=== PATIENT | female | born 2000 | race Caucasian/White ===

== ENCOUNTER 2021-06-21 10:00 | Emergency (ER) | payer OTHER, SELFPAY ==
[2021-06-21 10:10] VITALS: BP 117/49; PULSE 86; RESP 16; TEMP 36.4; O2SAT 100
--- NOTE | 2021-06-21 10:16 | ED.URI ---
HPI - URI/Sore Throat General Chief Complaint: Upper Respiratory Infection Stated Complaint: sore throat Time Seen by Provider: 06/21/21 10:15 Source: patient Mode of arrival: ambulatory Limitations: no limitations History of Present Illness HPI Narrative: Ms. Sparrow is a 20-year-old female patient presenting to the clinic today with complaints of sore throat x2 weeks. She also reports some nasal congestion and feels as though the drainage is going in the back of her throat. She denies any fever or chills. She denies any nausea or vomiting or abdominal pain. No known exposure to anybody with COVID, strep, or flu. MD elicited complaint: sore throat and nasal congestion Related Data Allergies Allergy/AdvReac Type Severity Reaction Status Date / Time No Known Allergies Allergy Mild Unverified 06/21/21 10:28 Review of Systems Review of Systems: Pertinent positives per HPI. Patient denies any fever, chills, rash, headache, visual changes, dizziness, cough, shortness of breath, chest pain, palpitations, nausea, vomiting, diarrhea, constipation, abdominal pain, or any urinary issues. PMFSH Comments At the time of my signature, I reviewed and agree with the nursing past medical, surgical, social, and family history. There is no relevant family history pertinent to the patient complaint. Exam Narrative: General: Well-developed, well nourished, in no apparent distress Head: Normocephalic, atraumatic Eyes: Pupils equally round and reactive to light bilaterally, EOM intact, sclera and conjunctive clear, no discharge, lids normal Ears: TMs intact and clear, ear canals clear, no drainage, grossly hearing normal. Nose: Nares patent, clear nasal discharge, no inflammation, no sinus tenderness. Mouth: Oral pharynx without lesions or masses, good dentition, MMM. Postnasal drip, oropharynx mildly red without tonsillar enlargement or exudate Neck: Supple, trachea midline, no enlargement of anterior or posterior cervical nodes, no thyroid masses or goiter palpable. Cardio: Regular rate and rhythm, s1 and s2 normal, no murmur appreciated. Resp: Clear to auscultation bilaterally, no rhonchi, rales, wheezing or rubs Course Course Emergency Course: Portions of this record may have been created with voice recognition software. Level of Care: Express Care Visit Vital Signs Vital signs: Vital Signs Temperature 36.4 C L 06/21/21 10:10 Pulse Rate 86 06/21/21 10:10 Respiratory Rate 16 06/21/21 10:10 Blood Pressure 117/49 L 06/21/21 10:10 Pulse Oximetry 100 06/21/21 10:10 Temperature 36.4 C L 06/21/21 10:10 Pulse Rate 86 06/21/21 10:10 Respiratory Rate 16 06/21/21 10:10 Blood Pressure 117/49 L 06/21/21 10:10 Pulse Oximetry 100 06/21/21 10:10 Vital signs reviewed MDM - URI/Sore Throat MDM Narrative Medical decision making narrative: At the time of visit patient is resting comfortably on the exam table. Oropharynx mildly red with no tonsillar exudate or swelling. Strep screen was obtained and was positive for strep so I will treat her with a course of amoxicillin. Supportive measures were discussed with patient and she voiced understanding of discharge instructions. Differential Diagnosis Differential diagnosis: Likely upper respiratory infection, croup, otitis media, sinusitis, viral infection, bronchitis, influenza and pharyngitis Discharge Plan Discharge Clinical Impression: Acute streptococcal pharyngitis Patient Disposition: Home, Self-Care Condition: Stable Instructions: Antibiotic Form, Strep Throat (ED) Additional Instructions: Strep screen was positive in the clinic Change toothbrush in 24 hours after initiation of antibiotics Take prescription medications only as prescribed Increase fluids and stay well hydrated Tylenol/motrin for pain/fever Flonase and OTC antihistamines as directed Vicks vapor rub to open sinuses Sinus rinses for congestion Cepacol spray, cough dick
== END 2021-06-21 10:49 | disposition home or self-care (01) ==
PROVIDERS: Emergency Provider Nurse Practitioner Family
DX: J02.0 Streptococcal pharyngitis (principal)
CPT/HCPCS: 87880; 99213; G0463

== ENCOUNTER 2024-03-12 08:37 | Outpatient (CLI) | payer MEDICAID, SELFPAY ==
[2024-03-12 09:31] LABS: Basophils Absolute Auto 0.1 K/mm3 (0.0-0.1); Eosinophils Absolute Auto 0.1 K/mm3 (0-0.3); Eosinophils Percent Auto 1.1 % (0-4.4); Hematocrit 28.7 % (37.0-47.0); Hemoglobin 8.4 g/dL (12.0-15.0); Immature Granulocyte Absolute 0.03 K/mm3 (0.00-0.031); Immature Granulocyte Percent A 0.3 % (0-0.5); Lymphocytes Absolute Auto 2.02 K/mm3 (0.9-3.2); Lymphocytes Percent Auto 18.7 % (18.3-44.2); Mean Corpuscular HGB Conc 29.3 g/dl (32-36); Mean Corpuscular Hemoglobin 19.6 pg (26-34); Mean Corpuscular Volume 66.9 fl (80-100); Mean Platelet Volume 9.2 fl (7.4-10.4); Monocytes Absolute Auto 0.8 K/mm3 (0.1-0.6); Monocytes Percent Auto 7.8 % (2.6-8.5); Neutrophils Absolute Auto 7.7 K/mm3 (1.3-6.7); Neutrophils Percent Auto 71.1 % (45.5-73.1); Platelet Count Result 564 k/mm3 (150-375); Red Blood Count 4.29 M/mm3 (4.2-5.4); Red Cell Distribution Width 18.6 % (11.5-14.5); White Blood Count 10.8 K/mm3 (4.5-10.0)
[2024-03-12 10:18] LABS: Anisocytosis 1+; Hypochromasia 1+; Microcytosis 1+ (NORMAL); Ovalocytes 1+; Platelet Estimate Increased (Adequate); Schistocytes None Seen
[2024-03-12 10:21] LABS: Hepatitis B Surface Antigen Negative (Negative); Rubella IgG Antibody 8.4 IU/ML
[2024-03-12 10:25] LABS: HIV 1/2 Ab P24 Ag Result Negative (Negative)
[2024-03-12 11:00] LABS: Rapid Plasma Reagin Non-Reactive (NonReactive)
[2024-03-14 16:32] LABS: CMV IgG Antibody <0.60 U/mL; Varicella IgG Antibody <1.00 S/CO
== END 2024-03-12 08:38 | disposition home or self-care (01) ==
PROVIDERS: Visit Provider Student in an Organized Health Care Education/Training Program
DX: N94.89 Other specified conditions associated with female genital organs and menstrual cycle (principal); Z20.2 Contact with and (suspected) exposure to infections with a predominantly sexual mode of transmission
CPT/HCPCS: 36415; 84702; 85025; 86592; 86644; 86695; 86696; 86703; 86747; 86762; 86787; 86850; 86900; 86901; 87086; 87186; 87340; G0432

== ENCOUNTER 2024-07-08 12:37 | Outpatient (CLI) | payer OTHER, SELFPAY ==
--- OUTSIDE RECORDS SUMMARY | 2024-07-08 12:39 | XMS_ITS | Referral Summary ---
Author Organization [facility] Address [address] [place] [address] Care Team Providers Care Polymerization Kettle Operator Name Role Phone No, Physician Primary Care Provider [phone] Encounters Date Type Department Care Team Description 04/17/2024 7:04 PM CORK MIXER - 04/17/2024 8:41 PM CORK MIXER Emergency [facility] Emergency Department [address] [place] [id number] UTI in , first trimester (Primary Dx); Suprapubic pain Discharge Disposition: Discharge to home or self care from Last 3 Months Allergies No known active allergies Social History Tobacco Use Types Packs/Day Years Used Date Smoking Tobacco: Never Assessed Personal Safety Answer Date Recorded Have you ever been in or are you currently in a harmful physical or emotional relationship or is someone making you feel afraid or unsafe? Denies 04/17/2024 Estimated Date of Delivery Comme nts Yes 10/24/2024 Sex and Gender Information Value Date Recorded Sex Assigned at Not on file Legal Sex Female 6:44 PM CORK MIXER Gender Identity Not on file Sexual Orientation Not on file Last Filed Vital Signs Vital Sign Reading Time Taken Comments Blood Pressure 124/68 04/17/2024 8:40 PM CORK MIXER Pulse 88 04/17/2024 8:40 PM CORK MIXER Temperature 36.9 C (98.4 F) 04/17/2024 6:46 PM CORK MIXER Respiratory Rate 18 04/17/2024 8:40 PM CORK MIXER Oxygen Saturation 100% 04/17/2024 8:40 PM CORK MIXER Inhaled Oxygen Concentration - - Weight 45.2 kg (99 lb 10.4 oz) 04/17/2024 6:46 P M CORK MIXER Height - - Body Mass Index - - Plan of Treatment Not on file Procedures Procedure Name Priority Date/Time Associated Diagnosis Comments EGFR STAT 04/17/2024 6:58 PM CORK MIXER URINALYSIS, MICROSCOPIC ONLY STAT 04/17/2024 6:58 PM CORK MIXER DIFFERENTIAL AUTO STAT 04/17/2024 6:5 8 PM CORK MIXER HCG, BLOOD, QUANTITATIVE STAT 04/17/2024 6:58 PM CORK MIXER LIPASE STAT 04/17/2024 6:58 PM CORK MIXER COMPREHENSIVE METABOLIC PANEL STAT 04/17/2024 6:58 PM CORK MIXER CBC WITH AUTO DIFFERENTIAL STAT 04/17/2024 6:58 PM CORK MIXER URINALYSIS AND REFLEX TO MICROSCOPIC AND CULTURE STAT 04/17/2024 6:58 PM CORK MIXER from Last 3 Months Results * eGFR (04/17/2024 6:58 PM CORK MIXER) eGFR >90 >=60 mL/min/1. 73 m2 Comment: Interpretive Data Reference Interval Normal >/= 90 mL/min/1.73m2 Mildly decreased* 60 - 89 mL/min/1.73m2 Mildly to moderately decreased 45 - 59 mL/min/1.73m2 Moderately to severely decreased 30 - 44 mL/min/1.73m2 Severely decreased 15 - 29 mL/min/1.73m2 Kidney Failure < 15 mL/min/1.73m2 *Relative to young adult level Estimated glomerular filtration rate is determined by the 2020 CKD-EPI equation recommended by the National Kidney Foundation (A Unifying Approach to GFR Estimation: Recommendations of the NKF-ASK Task Force on Reassessing the Inclusion of Race in Diagnosing Kidney Disease, JASN 202). The CKD-EPI equation should not be used for patients with unstable renal function and has not been validated in children and those over 70. Current interpretive data was last reviewed 2020. Testing performed by: [facility], [address] [place] [address], [place]., [address] Blood 04/17/2024 6:58 PM CORK MIXER 04/17/2024 7:05 PM CORK MIXER [facility] LAB BLOOD ORDERABL ES Final Result BRAD [address] [facility] Department [place] [address] * (ABNORMAL) Differential, auto (04/17/2024 6:58 PM CORK MIXER) Neutrophil abs 8.7(H) 1.5 - 6.5 K/cumm Comment:Testing performed by : [address] [address] Imm gran abs 0.0 0.0 - 0.1 K/cumm BRAD Comment:Testing performed by : [address] [address] Lymphocyte abs 2.4 0.8 - 3.3 K/cumm BRAD Comment:Testing performed by : [address] [address] Monocyte abs 1.0(H) 0.2 - 0.8 K/cumm BRAD Comment:Testing performed by : [address] [address] Eosinophil abs 0.1 0.0 - 0.5 K/cumm BRAD Comment:Testing performed by : [address] [address] Basophil abs 0.1 0.0 - 0.1 K/cumm BRAD Comment:Testing performed by : [address] [address] Neutrophil pct 70.9 % BRAD Comment: Interpretive Data Percent cell count reference ranges are not reported, since discordance with absolute values may lead to misinterpretation of CBC data. Current Interpretive Data was last revised on 2017. Testing performed by: [address] [address] Imm gran pct 0.2 % BRAD Comment: Interpretive Data Percent cell count reference ranges are not reported, since discordance with absolute values may lead to misinterpretation of CBC data. Current Interpretive Data was last revised on 2017. Testing performed by: [address] [address] Lymphocyte pct 19.2 % [facility] Comment: Interpretive Data Percent cell count reference ranges are not reported, since discordance with absolute values may lead to misinterpretation of CBC data. Current Interpretive Data was last revised on 2017. Testing performed by: [address] [address] Monocyte pct 8.1 % [facility] Comment: Interpretive Data Percent cell count reference ranges are not reported, since discordance with absolute values may lead to misinterpretation of CBC data. Current Interpretive Data was last revised on 2017. Testing performed by: [address] [address] Eosinophil pct 1.1 % [facility] Comment: Interpretive Data Percent cell count reference ranges are not reported, since discordance with absolute values may lead to misinterpretation of CBC data. Current Interpretive Data was last revised on 2017. Testing performed by: [address] [address] Basophil pct 0.5 % [facility] Comment: Interpretive Data Percent cell count reference ranges are not reported, since discordance with absolute values may lead to misinterpretation of CBC data. Current Interpretive Data was last revised on 2017. Testing performed by: [address] [address] Blood 04/17/2024 6:58 PM CORK MIXER 04/17/2024 7:05 PM CORK MIXER us [facility] BLOOD ORDERABL ES Final Result BRAD [address] [facility] Department [place] [address] * (ABNORMAL) Urinalysis reflex to microscopic and culture Urine (04/17/2024 6:58 PM CORK MIXER) Color, ur Yellow Yellow Comment:Testing performed by : [address] [place] [address] Clarity, ur Cloudy(A) Clear BRAD Comment:Testing performed by : [address], [place]., [address] Specific gravity, ur 1.024 1.003 - 1.030 BRAD Comment:Testing performed by : [address], [place]., [address] pH, urine 5.5 BRAD Comment: Interpretive Data U rine pH is affected by diet, medications, systemic acid-base disturbances, and renal tubular function. pH may affect urinary stone formation. For example, urine pH below 6.0 may help reduce the tendency for calcium phosphate stones and pH greater than 6.0 may reduce the tendency for uric acid stone formation. Source: [facility] [employer] Current Interpretive Data was last revised on 2017 Testing performed by: [address] [address] Protein, ur ql Negative Negative BRAD Comment:Testing performed by : [address] [address] Glucose, ur ql Negative Negative BRAD Comment:Testing performed by : [address] [address] Ketones, ur Negative Negative BRAD Comment:Testing performed by : [address] [address] Bilirubin, ur Negative Negative BRAD Comment:Testing performed by : [address] [address] Blood, ur Negative Negative BRAD Comment:Testing performed by : [address] [address] Urobilinogen, ur <2.0 <2.0 mg/dL BRAD Comment:Testing performed by : [address] [address] Nitrite, ur Negative Negative BRAD Comment:Testing performed by : [address] [address] Leukocyte esterase, ur 2+(A) Negative BRAD Comment:Testing performed by : [address] [address] UA reflex comment Reflex to microscopic UA will be performed. BRAD Comment:Testing performed by : [address] [address] Urine 04/17/2024 6:58 PM CORK MIXER 04/17/2024 7:05 PM CORK MIXER [facility] MICROBIOLOGY - GENERAL ORDERABLES Final Result BRAD [address] [facility] Department [place] [address] * (ABNORMAL) CBC with auto differential (04/17/2024 6:58 PM CORK MIXER) WBC 12.3(H) 3.8 - 9.9 K/cumm Comment:Testing performed by : [address] [address] Hgb 10.2(L) 11.9 - 15.5 g/dL BRAD Comment:Testing performed by : [address] [address] Hct 32.8(L) 35.6 - 45.5 % BRAD Comment:Testing performed by : [address] [address] Plt 502(H) 150 - 400 K/cumm BRAD Comment:Testing performed by : [address] [address] MPV 9.5 9.1 - 12.3 fL BRAD Comment:Testing performed by : [address] [address] RBC 4.48 3.90 - 5.20 M/cumm BRAD Comment:Testing performed by : [address] [address] MCV 73.2(L) 81.3 - 96.4 fL BRAD Comment:Testing performed by : [address] [address] MCH 22.8(L) 27.1 - 33.3 pg BRAD Comment:Testing performed by : [address] [place]., [address] MCHC 31.1(L) 32.3 - 35.7 g/dL BRAD PRICE Comment:Testing performed by : [address] [address] RDW CV 27.9(H) 11.1 - 14.9 % BRAD PRICE Comment:Testing performed by : [address] [address] RDW SD 68.7(H) 35.7 - 48.1 fL BRAD Comment:Testing performed by : [address] [address] NRBC abs 0.00 0.00 - 0.01 K/cumm BRAD Comment:Testing performed by : [address] [address] Blood Venous blood specimen / Unknown 04/17/2024 6:58 PM CORK MIXER 04/17/2024 7:05 PM CORK MIXER [facility] BLOOD ORDERABL ES Final Result BRAD [facility] Department [place] [address] * (ABNORMAL) Urinalysis, microscopic only (04/17/2024 6:58 PM CORK MIXER) WBC, ur 6-10(A) 0 - 5 /HPF Comment:Testing performed by : [address] [address] RBC, ur 3-5(A) 0 - 2 /HPF BRAD PRICE Comment:Testing performed by : [address] [address] Epithelial cells, squamous, ur >50(A) 0 - 5 /HPF BRAD PRICE Comment:Testing performed by : [address] [address] Mucous, ur Present(A) BRAD PRICE Comment:Testing performed by : [address] [address] Culture Reflex Comment Reflex conditions for urine culture (WBC >10) not met. BRAD Comment:Testing performed by : [address] [address] Urine 04/17/2024 6:58 PM CORK MIXER 04/17/2024 7:05 PM CORK MIXER Adebowale Tolulade Adesida [place] LAB URINE ORDERABL ES Final Result Performing Organization Address [facility] de Phone Number BRAD [address] [place] [address] * (ABNORMAL) hCG, blood, quantitative (04/17/2024 6:58 PM CORK MIXER) hCG, quant 289,318.0 (H) 0.0 - 5.0 IUnits/L Comment: Interpretive Data Male: < 5 IU/L Non- premenopausal Female: <5 IU/L The Alesia hCG Beta Quant assay procedure was used. Results from different manufacturers or methods may not be comparable. Serial testing should be performed using the same method. Interpretive Data was last revised on 2023 Testing performed by: [address] [address] Blood 04/17/2024 6:58 PM CORK MIXER 04/17/2024 7:05 PM CORK MIXER Adebowale Tolulade Ades[place] LAB BLOOD ORDERABL ES Final Result Performing Organization Address [facility] de Phone Number [address] [place] [address] * Lipase (04/17/2024 6:58 PM CORK MIXER) Lipase 27 10 - 99 Units/L Comment:Testing performed by : [address] [address] Blood Venous blood specimen / Unknown 04/17/2024 6:58 PM CORK MIXER 04/17/2024 7:05 PM CORK MIXER Adebowale Sunny [facility] LAB BLOOD ORDERABL ES Final Result [facility] [address] [facility] Department [place] [address] * (ABNORMAL) Comprehensive metabolic panel (04/17/2024 6:58 PM CORK MIXER) Sodium 137 135 - 145 mmol/L Comment:Testing performed by : [address] [address] Potassium, pl 3.9 3.3 - 4.9 mmol/L BRAD Comment: Hemolyzed; Potassium value may be falsely elevated by as much as 1.0 mmol/L. Suggest redraw and reanalysis. Testing performed by: [address] [address] Chloride 104 97 - 110 mmol/L BRAD Comment:Testing performed by : [address] [address] CO2 21(L) 22 - 32 mmol/L BRAD Comment:Testing performed by : [address] [address] Anion gap 12 2 - 15 mmol/L BRAD Comment:Testing performed by : [address] [address] BUN 12 6 - 25 mg/dL BRAD Comment:Testing performed by : [address] [address] Creatinine 0.52(L) 0.60 - 1.10 mg/dL BRAD Comment:Testing performed by : [address] [address] Glucose 90 70 - 199 mg/dL BRAD Comment: Interpretive Data Fasting glucose >/= 126 mg/dl is diagnostic for diabetes. Fasting is defined as no caloric intake for at least 8 hours. Fasting glucose between 100 mg/dl to 125 mg/dl is diagnostic of prediabetes. In a patient with classic symptoms of hyperglycemia or hyperglycemic crisis, a random glucose >/= 200 mg/dl is diagnostic for diabetes. In the absence of unequivocal hyperglycemia, results should be confirmed by repeat testing. The classification and Diagnosis of Diabetes Diabetes Care 202; 46: S19-S40. Current interpretive data was last revised 2022. Testing performed by: [facility], [address] [place] [address]., [address] Calcium 9.8 8.5 - 10.3 mg/dL BRAD Comment:Testing performed by : [address] [address] Bilirubin, total <0.2 0.1 - 1.2 mg/dL BRAD Comment:Testing performed by : [address] [address] Protein, pl 7.1 6.5 - 8.5 g/dL BRAD Comment:Testing performed by : [address] [address] Albumin 4.3 3.5 - 5.0 g/dL BRAD Comment:Testing performed by : [address] [address] Alk phos 46 40 - 130 Units/L BRAD Comment:Testing performed by : [address] [address] ALT 16 7 - 45 Units/L BRAD Comment:Testing performed by : [address] [address] AST 27 10 - 45 Units/L BRAD Comment: Hemolyzed; result may be falsely elevated Testing performed by: [address] [address] Blood Venous blood specimen / Unknown 04/17/2024 6:58 PM CORK MIXER 04/17/2024 7:05 PM CORK MIXER us [facility] BLOOD ORDERABL ES Final Result BRAD [address] [facility] [place] [address] from Last 3 Months Insurance [facility] Care Teams Polymerization Kettle Operator Relationship Specialty Start Date End Date No, Physician PCP - General 04/17/24
--- OUTSIDE RECORDS SUMMARY | 2024-07-08 12:39 | XMS_ITS | Clinical Summary ---
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 Gender Identity Not on file Sexual Orientation Not on file Plan of Treatment Health Maintenance Due Date Last Done Comments Hepatitis C Virus (HCV) Screening 2000 Hepatitis B Immunization (3 of 3 - 3-dose series) 04/10/2001 2000, 2000 Meningococcal B Immunization (1 of 2 - Standard) 2016 SARS-COV-2 Immunization ( - season) 2023 Influenza Immunization (Season Ended) 2024 Respiratory Syncytial Virus (RSV) Immunization (Adult) (1 - 1-dose 75+ series) 10/09/2075 Pneumococcal Immunization Combined Aged Out 06/25/2001, 04/17/2001, 01/16/2001 No longer eligible based on patient's age to complete this topic DTaP/Tdap/Td Immunization Discontinued 2014, 09/17/2011, 06/25/2001, Additional history exists TdaP Immunization Completed 09/18/2014, 09/17/2011 Human Papillomavirus (HPV) Immunization Completed 06/16/2017, 09/18/2014 Meningococcal Immunization (ACWY) Completed 06/16/2017, 09/18/2014, 09/17/2011 Rotavirus Immunization Aged Out No lo nger eligible based on patient's age to complete this topic
--- OUTSIDE RECORDS SUMMARY | 2024-07-08 12:39 | XMS_ITS | Clinical Summary ---
Author Organization [facility] Address [address] [place] [address] Care Team Providers Care Latin Dance Instructor Name Role Phone No, Physician Primary Care Provider [phone] Allergies No known active allergies Encounters Date Type Department Care Team Description 04/17/2024 7:04 PM CENTRAL OFFICE EQUIPMENT ENGINEER - 04/17/2024 8:41 PM CENTRAL OFFICE EQUIPMENT ENGINEER Emergency [facility] Emergency Department [address] [place] [address] UTI in , first trimester (Primary Dx); Suprapubic pain Discharge Disposition: Discharge to home or self care from Last 3 Months Social History Tobacco Use Types Packs/Day Years [...] on file Legal Sex Female 6:44 PM CENTRAL OFFICE EQUIPMENT ENGINEER Gender Identity Not on file Sexual Orientation Not on file Obstetrics History Para Term AB IAB SAB Ectopic Multiple Livin g Live Births 1 Date Outcome GA Total Labor Labor/2nd/3rd Weight Sex Type Anes PTL Jennifer A1 A5 Name Clin Current Last Filed Vital Signs Vital Sign Reading Time Taken Comments Blood Pressure 124/68 04/17/2024 8:40 PM CENTRAL OFFICE EQUIPMENT ENGINEER Pulse 88 04/17/2024 8:40 PM CENTRAL OFFICE EQUIPMENT ENGINEER Temperature 36.9 C (98.4 F) 04/17/2024 6:46 PM CENTRAL OFFICE EQUIPMENT ENGINEER Respiratory Rate 18 04/17/2024 8:40 PM CENTRAL OFFICE EQUIPMENT ENGINEER Oxygen Saturation 100% 04/17/2024 8:40 PM CENTRAL OFFICE EQUIPMENT ENGINEER Inhaled Oxygen Concentration - - Weight 45.2 kg (99 lb 10.4 oz) 04/17/2024 6:46 P M CENTRAL OFFICE EQUIPMENT ENGINEER Height - - Body Mass Index - - Plan of Treatment Health Maintenance Due Date Last Done Comments Cervical Cancer Screening 2000 Depression Screening 2000 Hepatitis C Screening 2000 DTaP/Tdap/Td Vaccine (1 - Tdap) 10/09/2011 Varicella Vaccines (1 of 2 - 13+ 2-dose series) 2013 HPV Vaccines (1 - 3-dose series) 10/09/2015 Meningococcal B Vaccine (1 o f 2 - Standard) 2016 Hepatitis B Screening 2018 Regular Well Visit/Exam 18-64 2018 Influenza Vaccine (#1) 2023 Pneumococcal vaccine <65 Aged Out No longer eligible based on patient's age to complete this topic Procedures Procedure Name Priority Date/Time Associated Diagnosis Comments EGFR STAT 04/17/2024 6:58 PM CENTRAL OFFICE EQUIPMENT ENGINEER URINALYSIS, MICROSCOPIC ONLY STAT 04/17/2024 6:58 PM CENTRAL OFFICE EQUIPMENT ENGINEER DIFFERENTIAL AUTO STAT 04/17/2024 6:5 8 PM CENTRAL OFFICE EQUIPMENT ENGINEER HCG, BLOOD, QUANTITATIVE STAT 04/17/2024 6:58 PM CENTRAL OFFICE EQUIPMENT ENGINEER LIPASE STAT 04/17/2024 6:58 PM CENTRAL OFFICE EQUIPMENT ENGINEER COMPREHENSIVE METABOLIC PANEL STAT 04/17/2024 6:58 PM CENTRAL OFFICE EQUIPMENT ENGINEER CBC WITH AUTO DIFFERENTIAL STAT 04/17/2024 6:58 PM CENTRAL OFFICE EQUIPMENT ENGINEER URINALYSIS AND REFLEX TO MICROSCOPIC AND CULTURE STAT 04/17/2024 6:58 PM CENTRAL OFFICE EQUIPMENT ENGINEER from Last 3 Months Results * eGFR (04/17/2024 6:58 PM CENTRAL OFFICE EQUIPMENT ENGINEER) eGFR >90 >=60 mL/min/1. 73 m2 Comment: [...] of Race in Diagnosing Kidney Disease, JASN 2020). The CKD-EPI equation should not be used for patients with unstable renal function and has not been validated in children and those over 70. Current interpretive data was last reviewed 2020. Testing performed by: [address] [address] Blood 04/17/2024 6:58 PM CENTRAL OFFICE EQUIPMENT ENGINEER 04/17/2024 7:05 PM CENTRAL OFFICE EQUIPMENT ENGINEER Emory SÁNCHEZ LAB BLOOD ORDERABL ES Final Result [place] [address] [facility] Department [place] [address] * (ABNORMAL) Differential, auto (04/17/2024 6:58 PM CENTRAL OFFICE EQUIPMENT ENGINEER) Neutrophil abs 8.7(H) 1.5 - 6.5 K/cumm Comment:Testing performed by : [address] [address] Imm gran abs 0.0 0.0 - 0.1 K/cumm BRAD Comment:Testing performed by : [address] [address] Lymphocyte abs 2.4 0.8 - 3.3 K/cumm BRAD Comment:Testing performed by : [address] [address] Monocyte abs 1.0(H) 0.2 - 0.8 K/cumm BRAD Comment:Testing performed by : [address] [address] Eosinophil abs 0.1 0.0 - 0.5 K/cumm [facility] Comment:Testing performed by : [address] [address] Basophil abs 0.1 0.0 - 0.1 K/cumm [facility] Comment:Testing performed by : [address] [address] Neutrophil pct 70.9 % [facility] Comment: Interpretive Data Percent cell count reference ranges are not reported, since discordance with absolute values may lead to misinterpretation of CBC data. Current Interpretive Data was last revised on 2017. Testing performed by: [address] [address] Imm gran pct 0.2 % [facility] Comment: Interpretive Data Percent cell count reference ranges are not reported, since discordance with absolute values may lead to misinterpretation of CBC data. Current Interpretive Data was last revised on 2017. Testing performed by: [address] [address] Lymphocyte pct 19.2 % [facility] Comment: Interpretive Data Percent cell count reference ranges are not reported, since discordance with absolute values may lead to misinterpretation of CBC data. Current Interpretive Data was last revised on 2017. Testing performed by: [address] [address] Monocyte pct 8.1 % [facility] Comment: Interpretive Data Percent cell count reference ranges are not reported, since discordance with absolute values may lead to misinterpretation of CBC data. Current Interpretive Data was last revised on 2017. Testing performed by: [address] [address] Eosinophil pct 1.1 % [facility] Comment: Interpretive Data Percent cell count reference ranges are not reported, since discordance with absolute values may lead to misinterpretation of CBC data. Current Interpretive Data was last revised on 2017. Testing performed by: [address] [address] Basophil pct 0.5 % [facility] Comment: Interpretive Data Percent cell count reference ranges are not reported, since discordance with absolute values may lead to misinterpretation of CBC data. Current Interpretive Data was last revised on 2017. Testing performed by: [address] [address] Blood 04/17/2024 6:58 PM CENTRAL OFFICE EQUIPMENT ENGINEER 04/17/2024 7:05 PM CENTRAL OFFICE EQUIPMENT ENGINEER [facility] S[facility]NCHE[facility] LAB BLOOD ORDERABL ES Final Result [place] [address] [facility] Department [place] [address] * (ABNORMAL) Urinalysis reflex to microscopic and culture Urine (04/17/2024 6:58 PM CENTRAL OFFICE EQUIPMENT ENGINEER) Color, ur Yellow Yellow Comment:Testing performed by : [address] [address] Clarity, ur Cloudy(A) Clear [facility] [place] Comment:Testing performed by : [address] [address] Specific gravity, ur 1.024 1.003 - 1.030 BR[facility] Comment:Testing performed by : [address] [address] pH, urine 5.5 BRAD Comment: Interpretive Data U rine pH is affected by diet, medications, systemic acid-base disturbances, and renal tubular function. pH may affect urinary stone formation. For example, urine pH below 6.0 may help reduce the tendency for calcium phosphate stones and pH greater than 6.0 may reduce the tendency for uric acid stone formation. Source: [facility] EasyProve Current Interpretive Data was last revised on 2017 Testing performed by: [address] [address] Protein, ur ql Negative Negative [facility] [place] Comment:Testing performed by : [address] [address] Glucose, ur ql Negative Negative BRAD Comment:Testing performed by : [address] [address] Ketones, ur Negative Negative [facility] [place] Comment:Testing performed by : [address] [address] Bilirubin, ur Negative Negative [facility] [place] Comment:Testing performed by : [address] [address] Blood, ur Negative Negative [facility] [place] Comment:Testing performed by : [address] [address] Urobilinogen, ur <2.0 <2.0 mg/dL [facility] Comment:Testing performed by : [address] [address] Nitrite, ur Negative Negative [facility] [place] Comment:Testing performed by : [address], [place]., [address] Leukocyte esterase, ur 2+(A) Negative [facility] [place] Comment:Testing performed by : [address] [address] UA reflex comment Reflex to microscopic UA will be performed. [facility] [place] Comment:Testing performed by : [address] [address] Urine 04/17/2024 6:58 PM CENTRAL OFFICE EQUIPMENT ENGINEER 04/17/2024 7:05 PM CENTRAL OFFICE EQUIPMENT ENGINEER us [facility] S[facility]NCHE[facility] LAB MICROBIOLOGY - GENERAL ORDERABLES Final Result [place] [address] [facility] Department of Laboratories [place], [place] [id number] * (ABNORMAL) CBC with auto differential (04/17/2024 6:58 PM CENTRAL OFFICE EQUIPMENT ENGINEER) WBC 12.3(H) 3.8 - 9.9 K/cumm Comment:Testing performed by : [address] [address] Hgb 10.2(L) 11.9 - 15.5 g/dL [facility] Comment:Testing performed by : [address] [address] Hct 32.8(L) 35.6 - 45.5 % [facility] Comment:Testing performed by : [address] [address] Plt 502(H) 150 - 400 K/cumm [facility] Comment:Testing performed by : [address] [address] MPV 9.5 9.1 - 12.3 fL [facility] Comment:Testing performed by : [address] [address] RBC 4.48 3.90 - 5.20 M/cumm [facility] Comment:Testing performed by : [address] [address] MCV 73.2(L) 81.3 - 96.4 fL BRAD Comment:Testing performed by : [address] [address] MCH 22.8(L) 27.1 - 33.3 pg BRAD Comment:Testing performed by : [address] [address] MCHC 31.1(L) 32.3 - 35.7 g/dL BRAD Comment:Testing performed by : [address] [address] RDW CV 27.9(H) 11.1 - 14.9 % BRAD Comment:Testing performed by : [address] [address] RDW SD 68.7(H) 35.7 - 48.1 fL BRAD Comment:Testing performed by : [address] [address] NRBC abs 0.00 0.00 - 0.01 K/cumm BRAD Comment:Testing performed by : [address] [address] Blood Venous blood specimen / Unknown 04/17/2024 6:58 PM CENTRAL OFFICE EQUIPMENT ENGINEER 04/17/2024 7:05 PM CENTRAL OFFICE EQUIPMENT ENGINEER us [facility] S[facility]NC[facility] LAB BLOOD ORDERABL ES Final Result [facility] [address] [facility] Department of Laboratories [place], [place] [id number] * (ABNORMAL) Urinalysis, microscopic only (04/17/2024 6:58 PM CENTRAL OFFICE EQUIPMENT ENGINEER) WBC, ur 6-10(A) 0 - 5 /HPF Comment:Testing performed by : [address], [place]., [address] RBC, ur 3-5(A) 0 - 2 /HPF BRAD Comment:Testing performed by : [address], [place]., [address] Epithelial cells, squamous, ur >50(A) 0 - 5 /HPF BRAD Comment:Testing performed by : [address], [place]., [address] Mucous, ur Present(A) BRAD Comment:Testing performed by : [address], [place]., [address] Culture Reflex Comment Reflex conditions for urine culture (WBC >10) not met. BRAD Comment:Testing performed by : [address] [address] Urine 04/17/2024 6:58 PM CENTRAL OFFICE EQUIPMENT ENGINEER 04/17/2024 7:05 PM CENTRAL OFFICE EQUIPMENT ENGINEER us [facility] S[facility]NC[facility] LAB URINE ORDERABL ES Final Result [facility] [address] [facility] Department of Laboratories [place], [place] [id number] * (ABNORMAL) hCG, blood, quantitative (04/17/2024 6:58 PM CENTRAL OFFICE EQUIPMENT ENGINEER) Pathologist [facility] hCG, quant 289,318.0 (H) 0.0 - 5.0 IUnits/L Comment: Interpretive Data Male: < 5 IU/L Non- premenopausal Female: <5 IU/L The [employer] hCG Beta Quant assay procedure was used. Results from different manufacturers or methods may not be comparable. Serial testing should be performed using the same method. Interpretive Data was last revised on 2023 Testing performed by: [address], [place]., [address] Blood 04/17/2024 6:58 PM CENTRAL OFFICE EQUIPMENT ENGINEER 04/17/2024 7:05 PM CENTRAL OFFICE EQUIPMENT ENGINEER Adebowale Tolulade Adesida PA LAB BLOOD ORDERABL ES Final Result Performing Organization Address City/[facility]/ZIP Co de Phone Number BRAD [address] [address] * Lipase (04/17/2024 6:58 PM CENTRAL OFFICE EQUIPMENT ENGINEER) Pathologist [facility] Lipase 27 10 - 99 Units/L Comment:Testing performed by : [address] [address] Blood Venous blood specimen / Unknown 04/17/2024 6:58 PM CENTRAL OFFICE EQUIPMENT ENGINEER 04/17/2024 7:05 PM CENTRAL OFFICE EQUIPMENT ENGINEER Adebowale Tolulade Adesida PA LAB BLOOD ORDERABL ES Final Result Performing Organization Address [facility] de Phone Number BRAD [address] [address] * (ABNORMAL) Comprehensive metabolic panel (04/17/2024 6:58 PM CENTRAL OFFICE EQUIPMENT ENGINEER) Pathologist [facility] Sodium 137 135 - 145 mmol/L Comment:Testing performed by : [address] [address] Potassium, pl 3.9 3.3 - 4.9 mmol/L BRAD Comment: Hemolyzed; Potassium value may be falsely elevated by as much as 1.0 mmol/L. Suggest redraw and reanalysis. Testing performed by: [address] [address] Chloride 104 97 - 110 mmol/L BRAD Comment:Testing performed by : [address] [address] CO2 21(L) 22 - 32 mmol/L BRAD Comment:Testing performed by : [address] [address] Anion gap 12 2 - 15 mmol/L BRAD Comment:Testing performed by : [address] [address] BUN 12 6 - 25 mg/dL BRAD Comment:Testing performed by : [address] [address] Creatinine 0.52(L) 0.60 - 1.10 mg/dL BRAD Comment:Testing performed by : [address] [address] Glucose 90 70 - 199 mg/dL [facility] Comment: Interpretive Data Fasting glucose >/= 126 [...] was last revised 2022. Testing performed by: [address] [address] Calcium 9.8 8.5 - 10.3 mg/dL [facility] Comment:Testing performed by : [address] [address] Bilirubin, total <0.2 0.1 - 1.2 mg/dL [facility] Comment:Testing performed by : [address] [address] Protein, pl 7.1 6.5 - 8.5 g/dL [facility] Comment:Testing performed by : [address] [address] Albumin 4.3 3.5 - 5.0 g/dL [facility] Comment:Testing performed by : [address] [address] Alk phos 46 40 - 130 Units/L BRAD Comment:Testing performed by : [address] [address] ALT 16 7 - 45 Units/L BRAD Comment:Testing performed by : [address] [address] AST 27 10 - 45 Units/L BRAD Comment: Hemolyzed; result may be falsely elevated Testing performed by: [facility], [address] [place] [address]., [address] Blood Venous blood specimen / Unknown 04/17/2024 6:58 PM CENTRAL OFFICE EQUIPMENT ENGINEER 04/17/2024 7:05 PM CENTRAL OFFICE EQUIPMENT ENGINEER Emory SÁNCHEZ LAB BLOOD ORDERABL ES Final Result [facility] [address] [facility] Department [place] [address] from Last 3 Months Insurance [facility] Care Teams Latin Dance Instructor Relationship Specialty Start Date End Date No, Physician PCP - General 04/17/24
[2024-07-08 13:44] LABS: Basophils Absolute Auto 0.1 K/mm3 (0.0-0.1); Basophils Percent Auto 0.6 % (0.2-1.2); Eosinophils Absolute Auto 0.1 K/mm3 (0-0.3); Eosinophils Percent Auto 0.8 % (0-4.4); Hematocrit 33.4 % (37.0-47.0); Hemoglobin 10.7 g/dL (12.0-15.0); Immature Granulocyte Absolute 0.17 K/mm3 (0.00-0.031); Immature Granulocyte Percent A 1.3 % (0-0.5); Lymphocytes Absolute Auto 2.21 K/mm3 (0.9-3.2); Lymphocytes Percent Auto 16.3 % (18.3-44.2); Mean Corpuscular Hemoglobin 28.8 pg (26-34); Monocytes Absolute Auto 1.2 K/mm3 (0.1-0.6); Monocytes Percent Auto 9.1 % (2.6-8.5); Neutrophils Absolute Auto 9.8 K/mm3 (1.3-6.7); Neutrophils Percent Auto 71.9 % (45.5-73.1); Platelet Count Result 391 k/mm3 (150-375); Red Blood Count 3.71 M/mm3 (4.2-5.4); Red Cell Distribution Width 16.2 % (11.5-14.5); White Blood Count 13.6 K/mm3 (4.5-10.0)
[2024-07-08 14:15] LABS: Iron 255 ug/dL (37-170)
[2024-07-08 14:24] LABS: Percent Iron Saturation 50 % (20-50)
== END 2024-07-08 12:38 | disposition home or self-care (01) ==
LOC: ANHLAB 12:38
PROVIDERS: Visit Provider Student in an Organized Health Care Education/Training Program
DX: O99.019 Anemia complicating pregnancy, unspecified trimester (principal); Z3A.00 Weeks of gestation of pregnancy not specified
CPT/HCPCS: 36415; 83540; 83550; 85025

== ENCOUNTER 2024-07-16 09:02 | Outpatient (CLI) | payer OTHER, SELFPAY ==
--- OUTSIDE RECORDS SUMMARY | 2024-07-16 09:05 | XMS_ITS | Clinical Summary ---
Author Organization [facility] Address [address] [place] [address] Care Team Providers Care Ui Designer Name Role Phone No, Physician Primary Care Provider [phone] Allergies No known active allergies Social History [...] on file Legal Sex Female 6:44 PM EDGER AUTOMATIC Gender Identity Not on file Sexual Orientation Not on file Obstetrics History Para Term AB IAB SAB Ectopic Multiple Livin g Live Births 1 Date Outcome GA Total Labor Labor/2nd/3rd Weight Sex Type Anes PTL Jennifer A1 A5 Name Clin Current Last Filed Vital Signs Vital Sign Reading Time Taken Comments Blood Pressure 124/68 04/17/2024 8:40 PM EDGER AUTOMATIC Pulse 88 04/17/2024 8:40 PM EDGER AUTOMATIC Temperature 36.9 C (98.4 F) 04/17/2024 6:46 PM EDGER AUTOMATIC Respiratory Rate 18 04/17/2024 8:40 PM EDGER AUTOMATIC Oxygen Saturation 100% 04/17/2024 8:40 PM EDGER AUTOMATIC Inhaled Oxygen Concentration - - Weight 45.2 kg (99 lb 10.4 oz) 04/17/2024 6:46 P M EDGER AUTOMATIC Height - - Body Mass Index - [...] Regular Well Visit/Exam 18-64 2018 Influenza Vaccine (Season Ended) 2024 Pneumococcal vaccine <65 Aged Out No longer eligible based on patient's age to complete this topic Insurance Care Teams Ui Designer Relationship Specialty Start Date End Date No, Physician PCP - General 04/17/24
--- OUTSIDE RECORDS SUMMARY | 2024-07-16 09:05 | XMS_ITS | Clinical Summary ---
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
--- OUTSIDE RECORDS SUMMARY | 2024-07-16 09:05 | XMS_ITS | Referral Summary ---
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 PV INSTALLER Gender Identity Not on file Sexual Orientation Not on file Last Filed Vital Signs Vital Sign Reading Time Taken Comments Blood Pressure 124/68 04/17/2024 8:40 PM JOURNEYMAN ELECTRICIAN PV INSTALLER Pulse 88 04/17/2024 8:40 PM JOURNEYMAN ELECTRICIAN PV INSTALLER Temperature 36.9 C (98.4 F) 04/17/2024 6:46 PM JOURNEYMAN ELECTRICIAN PV INSTALLER Respiratory Rate 18 04/17/2024 8:40 PM JOURNEYMAN ELECTRICIAN PV INSTALLER Oxygen Saturation 100% 04/17/2024 8:40 PM JOURNEYMAN ELECTRICIAN PV INSTALLER Inhaled Oxygen Concentration - - Weight 45.2 kg (99 lb 10.4 oz) 04/17/2024 6:46 P M JOURNEYMAN ELECTRICIAN PV INSTALLER Height - - Body Mass Index - - Plan of Treatment Not on file [facility] Care Teams Advertisement Compositor Relationship Specialty Start Date End Date No, Physician PCP - General 04/17/24
[2024-07-16 10:22] LABS: Hematocrit 32.8 % (37.0-47.0); Hemoglobin 10.9 g/dL (12.0-15.0); Mean Corpuscular HGB Conc 33.2 g/dl (32-36); Mean Corpuscular Hemoglobin 29.8 pg (26-34); Mean Corpuscular Volume 89.6 fl (80-100); Mean Platelet Volume 9.3 fl (7.4-10.4); Platelet Count Result 361 k/mm3 (150-375); Red Blood Count 3.66 M/mm3 (4.2-5.4); Red Cell Distribution Width 15.8 % (11.5-14.5); White Blood Count 14.5 K/mm3 (4.5-10.0)
[2024-07-16 10:34] LABS: Glucose 1 Hour PP 50gm Dose 101 mg/dL
[2024-07-16 11:14] LABS: HIV 1/2 Ab P24 Ag Result Negative (Negative)
[2024-07-16 11:20] LABS: Syphilis IgG/IgM Antibody Negative (Negative)
== END 2024-07-16 09:03 | disposition home or self-care (01) ==
LOC: ANHLAB 09:03
PROVIDERS: Visit Provider Student in an Organized Health Care Education/Training Program
DX: Z34.90 Encounter for supervision of normal pregnancy, unspecified, unspecified trimester (principal); Z3A.00 Weeks of gestation of pregnancy not specified
CPT/HCPCS: 36415; 82947; 85027; 86593; 86703; G0432

== ENCOUNTER 2024-10-05 12:25 | Outpatient (CLI) | payer OTHER, SELFPAY ==
--- NOTE | ~2024-10-05 | US_ITS ---
EXAM EXAMINATION: US OB follow up DATE: 10/05/2024 16:46 CDT INDICATION: Growth evaluation COMPARISON: 06/15/2024 TECHNIQUE: Real-time transabdominal obstetric ultrasound. FINDINGS: 1 para 0 There is a single intrauterine gestation in vertex presentation (an interval change from previous jerry dy). The placenta is anterior, and demonstrates multiple punctate calcifications, consistent with gestatio nal age. The cervix was not delineated on the current static images. cardiac activity and movement is noted with a heart rate of 125 beats per minute. The following biometric data were obtained: Biparietal diameter (BPD): 9.5 cm; head circumference (HC): 34 cm; abdominal circumference (AC): 34 cm; femur length (FL): 7.3 cm. These measurements are concordant. Estimated weight is 3314 g +/- 497 g, which correlates with the 72nd percentile when 10/18/2024 is used as estimated date of delivery. As single measurements, these parameters are each equal to the following estimated gestational ages: BPD: 38 weeks 4 days. HC: 38 weeks 4 days. AC: 37 weeks 4 days. FL: 37 weeks 4 days. estimated gestational age based solely on measurements from this exam is 38 weeks 1 day +/- 2 w eeks 5 days. Amniotic fluid index measures 13.2 cm, within normal limits. IMPRESSION: Single intrauterine gestation in vertex presentation with cardiac activity identified. Estimated weight is within the 72nd percentile when 10/18/2024 is used as an estimated date of d elivery. Reviewed, dictated and finalized at location A. IMPRESSION: Single intrauterine gestation in vertex presentation with cardiac activit y identified. Estimated weight is within the 72nd percentile when 10/18/2024 is used as an estimated date of delivery.
--- OUTSIDE RECORDS SUMMARY | 2024-10-05 12:29 | XMS_ITS | Clinical Summary ---
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
--- OUTSIDE RECORDS SUMMARY | 2024-10-05 12:29 | XMS_ITS | Clinical Summary ---
Author Organization [facility] Address [address] [place] [address] Care Team Providers Care Political Science Chair Name Role Phone No, Physician Primary Care Provider [phone] Allergies No known active allergies Social History [...] on file Legal Sex Female 6:44 PM SIGNAL APPRENTICE Gender Identity Not on file Sexual Orientation Not on file Obstetrics History Para Term AB IAB SAB Ectopic Multiple Livin g Live Births 1 Date Outcome GA Total Labor Labor/2nd/3rd Weight Sex Type Anes PTL Jennifer A1 A5 Name Clin Current Last Filed Vital Signs Vital Sign Reading Time Taken Comments Blood Pressure 124/68 04/17/2024 8:40 PM SIGNAL APPRENTICE Pulse 88 04/17/2024 8:40 PM SIGNAL APPRENTICE Temperature 36.9 C (98.4 F) 04/17/2024 6:46 PM SIGNAL APPRENTICE Respiratory Rate 18 04/17/2024 8:40 PM SIGNAL APPRENTICE Oxygen Saturation 100% 04/17/2024 8:40 PM SIGNAL APPRENTICE Inhaled Oxygen Concentration - - Weight 45.2 kg (99 lb 10.4 oz) 04/17/2024 6:46 P M SIGNAL APPRENTICE Height - - Body Mass Index - [...] Well Visit/Exam 18-64 2018 Influenza Vaccine (#1) 2024 Pneumococcal vaccine <65 Aged Out No longer eligible based on patient's age to complete this topic Insurance Care Teams Political Science Chair Relationship Specialty Start Date End Date No, Physician PCP - General 04/17/24
== END 2024-10-05 12:26 | disposition home or self-care (01) ==
PROVIDERS: Visit Provider Student in an Organized Health Care Education/Training Program
DX: Z34.90 Encounter for supervision of normal pregnancy, unspecified, unspecified trimester (principal)
CPT/HCPCS: 76816

== ENCOUNTER 2024-10-13 19:45 | Observation (INO) | payer OTHER, SELFPAY ==
[2024-10-13] VITALS (25 sets, daily range): BP systolic 110–133; BP diastolic 58–73; PULSE 90–117; TEMP 36.2; O2SAT 97–100; BMI 25.2
--- NOTE | 2024-10-13 19:45 | PC.NURSE ---
Pt arrives to unit from the ED with pelvic, rib, and back pain 6 out of 10.
--- NOTE | 2024-10-13 20:13 | OBADM ---
This patient, Radha Sparrow, admitted to the OB room OB Post 116 for observation. Patient/family oriented to hospital policies and general routines including ID bracelet, bed and alarms, visiting hours, pain management, procedures, bathroom and other care routines, personal items, smoking policy, room service/diet, and visiting hours. Patient/Family are encouraged to report perceived risks to care and to ask questions if they do not understand what they are told or what they should do.
--- NOTE | 2024-10-13 20:40 | PC.NURSE ---
Called Dr. Batres, update on pt, pelvic, rib and lower back pain 6 out of 10, and contractions. Orders received to administer Tylenol 1000 mg.
--- NOTE | 2024-10-13 21:00 | PC.NURSE ---
Pt denies Tylenol at this time.
--- NOTE | 2024-10-13 21:41 | PC.NURSE ---
Called Dr. Batres, update on pt, cervical exam, and contractions. Orders received to discharge pt with instructions to keep next scheduled appointment and when to return to the unit.
--- NOTE | 2024-10-13 21:59 | PC.NURSE ---
Pt discharged with instructions to keep next scheduled appointment and when to return to the unit, pt verbalizes understanding.
--- NOTE | 2024-10-17 08:06 | PM.OBTRLD ---
OB - Triage/Final Diagnosis Visit Information Date of evaluation: 10/14/24 Reason for evaluation: threatened labor Comments/Additional reasons for admission: I have assessed the risk for this patient, Radha Sparrow, and determined that she would benefit from observation care.
== END 2024-10-13 21:59 | disposition home or self-care (01) ==
PROVIDERS: Admitting Provider Student in an Organized Health Care Education/Training Program; Visit Provider Student in an Organized Health Care Education/Training Program
DX: O47.1 False labor at or after 37 completed weeks of gestation (principal); Z3A.38 38 weeks gestation of pregnancy
CPT/HCPCS: G0378; G0379

== ENCOUNTER 2024-10-25 05:57 | Inpatient (IN) | payer OTHER, SELFPAY ==
[2024-10-25] VITALS (58 sets, daily range): BP systolic 90–133; BP diastolic 48–84; PULSE 79–116; TEMP 36.4–36.6; BMI 25.6
[2024-10-25] MEDS: DINOPROSTONE 10 MG VAG INSERT VAGINAL (07:00)
--- NOTE | 2024-10-25 07:07 | LDADM ---
This patient, Radha Sparrow, was admitted to Labor/Delivery/Recovery 104 on 10/25/24 at 05:57. Plans for labor, pain management and were discussed with patient. Patient/family oriented to hospital policies and general routines including ID bracelet, bed and alarms, visiting hours, pain management, procedures, bathroom and other care routines, personal items, smoking policy, room service/diet and guest tray routines, security routines, and visiting hours. Patient/Family are encouraged to report perceived risks to care and to ask questions if they do not understand what they are told or what they should do. See OBIX for further documentation.
[2024-10-25 07:34] LABS: Hematocrit 35.6 % (37.0-47.0); Hemoglobin 12.5 g/dL (12.0-15.0); Immature Granulocyte Percent A 1.5 % (0-0.5); Lymphocytes Absolute Auto 2.07 K/mm3 (0.9-3.2); Mean Corpuscular HGB Conc 35.1 g/dl (32-36); Mean Corpuscular Hemoglobin 32.2 pg (26-34); Mean Corpuscular Volume 91.8 fl (80-100); Nucleated Red Blood Cells Absolute Auto 0.000 K/mm3 (0.0-0.012); Nucleated Red Blood Cells Perc 0.0 % (0.0-0.2); Platelet Count Result 273 k/mm3 (150-375); Red Blood Count 3.88 M/mm3 (4.2-5.4); White Blood Count 11.5 K/mm3 (4.5-10.0)
[2024-10-25 08:36] LABS: HIV 1/2 Ab P24 Ag Result Negative (Negative)
[2024-10-25 09:00] LABS: Syphilis IgG/IgM Antibody Non-Reactive (Nonreactive)
--- NOTE | 2024-10-25 09:01 | WPDHPUPDATE1 ---
History and Physical Update Update Date/Time: 10/25/24 09:01 24 yo at 40w1d who presents for IOL. History and Physical has been reviewed, including an updated exam of the patient. There are NO changes in the patient's condition. Risks, benefits, and alternatives have been discussed and questions answered. Patient agrees to proceed with procedure. A/P: Admit to L&D Routine admission orders labs reviewed Rh positive GBS unknown, will start antibiotics in labor Continuous EFM Plan for Cervidil induction of labor Patient may have epidural as needed
--- NOTE | 2024-10-25 19:41 | P.PNAN_ITS ---
Anes - Eval Pre Procedure Procedure: labor epidural Date/Time: 10/25/24 19:41 Surgeon: tarah Preop Diagnosis: pain during labor Pre Op Diagnosis: IOL Patient Data Age: 24 Gender: F Height: 1.57 m Weight: 63.5 kg Last Vital Signs Temp 36.4 C L 10/25/24 15:00 Pulse 94 10/25/24 17:31 BP 90/75 L 10/25/24 17:31 O2 Del Method Room Air 10/25/24 07:07 Allergies Allergy/AdvReac Type Severity Reaction Status Date / Time No Known Allergies Allergy Mild Verified 10/25/24 07:03 Home Medications ?Medication ?Instructions ?Recorded ?Confirmed ?Type ferrous sulfate 325 mg (65 mg 325 mg PO DAILY #90 tabs 08/10/24 10/25/24 Rx iron) tablet (FeroSul) Laboratory Tests 10/25/24 06:53 WBC 11.5 H K/mm3 (4.5-10.0) RBC 3.88 L M/mm3 (4.2-5.4) Hgb 12.5 g/dL (12.0-15.0) Hct 35.6 L % (37.0-47.0) MCV 91.8 fl (80-100) MCH 32.2 pg (26-34) MCHC 35.1 g/dl (32-36) RDW 13.2 % (11.5-14.5) Plt Count 273 k/mm3 (150-375) MPV 10.6 H fl (7.4-10.4) Immature Gran % (Auto) 1.5 H % (0-0.5) Neut % (Auto) 68.1 % (45.5-73.1) Lymph % (Auto) 18.0 L % (18.3-44.2) [place] % (Auto) 10.2 H % (2.6-8.5) Eos % (Auto) 1.6 % (0-4.4) Baso % (Auto) 0.6 % (0.2-1.2) Lymph # (Auto) 2.07 K/mm3 (0.9-3.2) [place] # (Auto) 1.2 H K/mm3 (0.1-0.6) Eos # (Auto) 0.2 K/mm3 (0-0.3) Baso # (Auto) 0.1 K/mm3 (0.0-0.1) Abs Immat Gran (auto) 0.17 H K/mm3 (0.00-0.031) Absolute Neuts (auto) 7.8 H K/mm3 (1.3-6.7) Absolute Nucleated RBC 0.000 K/mm3 (0.0-0.012) Nucleated RBC % 0.0 % (0.0-0.2) Syphilis IgG/IgM Ab Non-reactive (Nonreactive) HIV 1&2 Ab/P24 Ag 4thGn Negative (Negative) Blood Type A Positive Antibody Screen Negative Patient hx anesthesia problems: none Family hx anesthesia problems: none Results Review: All pre-operative results and documents have been reviewed as part of the pre- operative evaluation. [facility] Past Medical History Medical History (Updated 10/25/24 @ 19:41 by Rose Mary Tripp CRNA) Psoriasis IUP (intrauterine ), incidental Social History Social History (System 10/19/24 @ 13:53 by Adeline Johnson) Smoking status: Never smoker Alcohol intake: never Substance use: never Substance use type: does not use Do You Feel Safe in your Home?: Yes Lack of Transportation: No Lack of Food: Never True Current Housing: I Have Housing Concerned About Future Housing: No Difficulty Paying Gas/Electric Bills: No Difficulty Paying for Meds: No Currently Unemployed: No Education: High School Diploma/GED Difficulty w/ Childcare or Family Care: No Additional living arrangements comments: FOB/boyfriend Occupation/Education: occupation Gender identity (if verbalized by the patient): Female Sexual Orientation (if Verbalized by the Patient): Straight or Heterosexual Spiritual care concerns: No Exam Day of Procedure 10/25/24 19:41
[2024-10-26] VITALS (320 sets, daily range): BP systolic 79–140; BP diastolic 45–117; PULSE 31–163; TEMP 36.3–37.5; O2SAT 78–100
[2024-10-26] MEDS: LACTATED RINGERS 1,000 ML 125 ML IV CONT ×3 (00:53→14:39)
[2024-10-26] MEDS: TERBUTALINE SULFATE 1 MG/ML VIAL 0.25 MG SUB-Q (01:45)
[2024-10-26] MEDS: OXYTOCIN 30 UNITS/NS 500 ML 30 UNITS/500 ML BAG IV CONT (05:54)
[2024-10-26] MEDS: AMPICILLIN SODIUM 2 GM in SODIUM CHLORIDE 0.9% IV 100 ML 200 ML IVPB (09:46)
[2024-10-26] MEDS: AMPICILLIN SODIUM 1 GM in SODIUM CHLORIDE 0.9% IV 50 ML 100 ML IVPB ×2 (13:48→17:59)
[2024-10-26] MEDS: ONDANSETRON INJ 4 MG/2 ML VIAL IV PUSH (14:39)
--- NOTE | 2024-10-26 19:52 | P.PCNOB_ITS ---
OB - Vaginal Delivery Note Procedure Delivery date: 10/26/24 Events: Elective Induction of Labor Induction method: Per Cervidil Protocol Delivery augmentation: Pitocin Delivery monitor: External FHT and Internal Uterine Route of delivery: Episiotomy description: None Laceration Description: Perineal - 2nd Degree and Labial (bilateral) Delivery repair: vicryl Specimen: No Quantitative Blood Loss (ml): 400 Anesthesia type: Epidural Disposition: Floor Complications: No immediate complications Narrative: Patient pushed for a spontaneous vaginal delivery. The fetus was delivered atraumatically and placed on the maternal abdomen. The cord was clamped and cut after 1 minute of life. The cord was double clamped and cut and a segment of cord was collected for cord gases. Cord blood was collected for blood type and Coomb's testing. The placenta delivered spontaneously and was noted to be intact. The perineum was inspected and a 2nd degree perineal laceration and bilateral labial lacerations were noted. The lacerations were repaired with 3-0 vicryl in a running fashion. The fundus was noted to be firm and good hemostasis was noted. Due to perineal swelling and oozing of the vaginal lacerations, vaginal packing was placed to help tamponade the vaginal lacerations. The mom and infant were stable in the delivery room. [place] Baby Date of : 10/26/24 Time of : 19:24 Gestational Age by Date: 40 Infant gender: Male Weight (pounds): 9 Weight (ounces): 8 presentation: vertex position: Right Occiput Anterior Placenta delivery description: Spontaneous Cord Vessel Description: 3 Vessels score one minute: 8 score five minutes: 9
[2024-10-26] MEDS: OXYTOCIN 30 UNITS/NS 500 ML 30 UNITS/500 ML BAG 125 UNITS IV CONT (20:02)
[2024-10-26] MEDS: IBUPROFEN 600 MG TABLET PO (21:55)
[2024-10-27 03:54] VITALS: PULSE 83; O2SAT 96
[2024-10-27 03:55] VITALS: BP 101/74; PULSE 76
[2024-10-27 04:00] VITALS: RESP 16; TEMP 36.6
[2024-10-27 04:19] LABS: Hematocrit 30.2 % (37.0-47.0); Hemoglobin 10.6 g/dL (12.0-15.0)
[2024-10-27 07:59] VITALS: BP 110/73; PULSE 79
[2024-10-27] MEDS: MULTIVIT/MIN/PREN/FOL AC/IRON TABLET 1 TAB PO (08:07)
[2024-10-27] MEDS: IBUPROFEN 600 MG TABLET PO ×2 (08:07→17:24)
[2024-10-27] MEDS: DOCUSATE SODIUM 100 MG CAPSULE PO (08:07)
--- NOTE | 2024-10-27 14:42 | WPDANLDPN2 ---
Anes-Prog Note L&D Date/Time: 10/27/24 14:42 Comfortable throughout: labor and delivery Neuraxial method: epidural Epidural/Spinal procedure site: clean & non-tender Neuro status: Neuro function grossly intact. Cardiovascular status: normal Respiratory status: normal Airway patency: baseline Mental status: baseline Vital Signs: Last Vital Signs Temp 36.6 C 10/27/24 04:00 Pulse 79 10/27/24 07:59 Resp 16 10/27/24 04:00 BP 110/73 10/27/24 07:59 Pulse Ox 96 10/27/24 03:54 O2 Del Method Room Air 10/25/24 07:07 Pain score (VAS): 0 I/O: Intake & Output 10/26/24 10/27/24 10/27/24 23:59 07:59 15:59 Output Total 400 Balance -400 Patient feedback: Patient satisfied with anesthetic care.
--- NOTE | 2024-10-27 16:03 | PM.OBPNVD ---
OB - PN: Subj Subjective Date/time seen: 10/27/24 16:03 Patient comments: no complaints, pain well controlled and tolerating diet [place] feeding status: exclusively breast feeding Narrative: patient doing well this AM. No complaints. Pain is well controlled. She reports minimal bleeding. She is ambulating and voiding without difficulty. She is tolerating PO. She denies N/V, fever, chills. OB - PN: Obj Data Labs 10/27/24 04:02 Labs: Laboratory Results - last 24 hr 10/27/24 04:02 Hgb 10.6 L Hct 30.2 L OB - PN A/P Plan day: 1 Plan: routine care Comments: patient doing well H/H stable continue routine care Time Spent With Patient Time: Total time spent is greater than 50% in coordination of care (as documented) at patient's floor/unit and/or counseling patient: Time with patient: less than 15 minutes Review of Systems Review of Systems: All systems reviewed & are unremarkable except as noted in HPI and below Exam Const: General: comfortable and no acute distress Resp: Effort & Inspection: normal respiratory effort Cardio: Rate: regular rate GI: GI Palp: Yes Soft to palpation and No Tenderness to palpation present (GI) Auscultation: normal bowel sounds Other: fundus firm and below umbilicus. Psych: Affect: normal affect
[2024-10-27 20:21] VITALS: BP 126/79; PULSE 88; RESP 18; TEMP 36.8; O2SAT 99
[2024-10-27] MEDS: ACETAMINOPHEN 325 MG TABLET 650 MG PO (21:49)
[2024-10-28] MEDS: IBUPROFEN 600 MG TABLET PO ×2 (01:29→08:53)
[2024-10-28 07:15] VITALS: BP 106/60; PULSE 79; RESP 18; TEMP 36.8; O2SAT 99
--- NOTE | 2024-10-28 07:47 | PM.OBDSVD ---
DS: Admitting Diagnosis Discharge Date 10/28/24 Admitting Diagnosis intrauterine at term DS: Discharge Diagnosis Discharge Diagnosis (1) Normal vaginal delivery: Code(s): O80 - Encounter for full-term uncomplicated delivery Status: Acute OB - DS: Summary OB Procedures : None OB Procedures Intrapartum: Spontaneous Vag Delivery OB Procedures: : None Peripartum Data Delivery Method: Natural Vaginal Laceration Description: Perineal - 2nd Degree and Labial (bilateral) Episiotomy description: None complications: none Status at Discharge Functional status at discharge: independent ambulation Overall status at discharge: patient is back to baseline Time Spent with Patient Time attestation: Total time spent providing and/or coordinating discharge services: Time spent: Less than 30 minutes Exam Const: General: comfortable and no acute distress Resp: Effort & Inspection: normal respiratory effort Auscultation: clear to auscultation bilaterally Cardio: Rate: regular rate GI: GI Palp: Yes Soft to palpation Auscultation: normal bowel sounds Other: Fundus firm below umbilicus Psych: Appearance: grossly normal Mental Status: mental status grossly normal Affect: normal affect Discharge Plan Discharge Discharging Clinician: Alfonso Batres Patient Disposition: Home Activity: as tolerated and pelvic rest Diet: regular Patient Instructions: Antibiotic Form, Vaginal Delivery (DC) Patient Language: Slovak Stand Alone Forms: General Discharge Information Follow-up/Referrals: Alfonso Batres MD [Physician, DATA INPUT CLERK] - 4 Weeks Discharge Medications: New ibuprofen 600 mg tablet 600 mg PO Q6H PRN (Reason: pain) Qty: 30 0RF acetaminophen 500 mg tablet 500 mg PO Q6H PRN (Reason: pain) Qty: 30 0RF Continued ferrous sulfate [FeroSul] 325 mg (65 mg iron) tablet 325 mg PO DAILY Qty: 90 0RF Date of admission: 10/25/24 05:57 Primary Care Provider: PHYSICIAN,DIGITAL MEASUREMENT ADVISOR Admitting Provider: Alfonso Batres Attending physician on admission: Alfonso Batres Condition: Stable
[2024-10-28] MEDS: DOCUSATE SODIUM 100 MG CAPSULE PO (08:53)
[2024-10-28] MEDS: MEASLES,MUMPS,RUBELLA VACCINE 0.5 ML VIAL SUB-Q (09:10)
[2024-10-31 11:24] VITALS: BP 128/78; PULSE 74; RESP 18; TEMP 36.6; O2SAT 99
== END 2024-10-28 09:56 | disposition home or self-care (01) | DRG 560 ==
LOC: ANHLDR 18:51 → ANHOBPP 10-26 21:45 → ANHOB2 10-27 15:00
PROVIDERS: Admitting Provider Student in an Organized Health Care Education/Training Program; Visit Provider Student in an Organized Health Care Education/Training Program
DX: O70.1 Second degree perineal laceration during delivery (principal); Z37.0 Single live birth; Z3A.40 40 weeks gestation of pregnancy
CPT/HCPCS: 36415; 85014; 85018; 85025; 86593; 86703; 86850; 86900; 86901; 90710; A9270; G0432; J0290; J2405; J2590; J2795; J3105; J7120

== ENCOUNTER 2024-11-21 13:21 | Outpatient (CLI) | payer OTHER, SELFPAY ==
--- OUTSIDE RECORDS SUMMARY | 2024-11-21 13:44 | XMS_ITS | Clinical Summary ---
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
--- OUTSIDE RECORDS SUMMARY | 2024-11-21 13:44 | XMS_ITS | Clinical Summary ---
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 Gender Identity Not on file Sexual Orientation Not on file Obstetrics History Para Term AB IAB SAB Ectopic Multiple Livin g Live Births 1 Date Outcome GA Total Labor Labor/2nd/3rd Weight Sex Type Anes PTL Jennifer A1 A5 Name Clin Current Last Filed Vital Signs Vital Sign Reading Time Taken Comments Blood Pressure 124/68 04/17/2024 8:40 PM FISHING LURE ASSEMBLER Pulse 88 04/17/2024 8:40 PM FISHING LURE ASSEMBLER Temperature 36.9 C (98.4 F) 04/17/2024 6:46 PM FISHING LURE ASSEMBLER Respiratory Rate 18 04/17/2024 8:40 PM FISHING LURE ASSEMBLER Oxygen Saturation 100% 04/17/2024 8:40 PM FISHING LURE ASSEMBLER Inhaled Oxygen Concentration - - Weight 45.2 kg (99 lb 10.4 oz) 04/17/2024 6:46 P M FISHING LURE ASSEMBLER Height - - Body Mass Index - - Plan of Treatment Health Maintenance Due Date Last Done Comments Cervical Cancer Screening 2000 Depression Screening 2000 Hepatitis C Screening 2000 DTaP/Tdap/Td Vaccine (1 - Tdap) 10/09/2011 Varicella Vaccines (1 of 2 - 13+ 2-dose series) 2013 HPV Vaccines (1 - 3-dose series) 10/09/2015 Hepatitis B Screening 2018 Regular Well Visit/Exam 18-64 2018 Influenza Vaccine (#1) 2024 Pneumococcal vaccine <65 Aged Out No longer eligible based on patient's age to complete this topic Insurance [facility] Care Teams Hotel Clerk Relationship Specialty Start Date End Date No, Physician PCP - General 04/17/24
== END 2024-11-21 13:22 | disposition home or self-care (01) ==
LOC: ANHLAB 13:22
PROVIDERS: Visit Provider Student in an Organized Health Care Education/Training Program
DX: R30.0 Dysuria (principal)
CPT/HCPCS: 87086; 87186

== ENCOUNTER 2024-12-11 15:30 | Emergency (ER) | payer OTHER, SELFPAY ==
[2024-12-11 15:38] VITALS: BP 110/61; PULSE 97; RESP 18; TEMP 36.7; O2SAT 98
--- NOTE | 2024-12-11 15:38 | ED_ITS ---
HPI - Female Genitourinary General Chief complaint: Urogenital-Female Stated complaint: Foul urine, irritation, UTI? Time Seen by Provider: 12/11/24 15:30 Source: patient Mode of arrival: ambulatory Limitations: no limitations History of Present Illness HPI Narrative: Patient is a 24-year-old female who presents with concern for UTI. Patient had UTI just after delivering son 1 month ago. Patient was started on Keflex and then switched to Macrobid. Reports urine has been cloudy and malodorous with mild lower abdominal cramping. Denies any concern for STI, fever, chills, nausea, vomiting, diarrhea, low back pain. MD elicited complaint: dysuria Related Data Allergies Allergy/AdvReac Type Severity Reaction Status Date / Time No Known Allergies Allergy Mild Verified 12/11/24 15:46 Review of Systems Review of Systems: All systems reviewed & are unremarkable except as noted in HPI and below Constitutional: Constitutional: Denies chills, Denies fever(s), Denies headache(s), Denies malaise and Denies weakness Eyes: Eyes: Denies change in vision, Denies eye discharge and Denies irritation ENT: Denies otalgia, Denies headache(s), Denies nasal congestion, Denies nasal discharge, Denies sinus pain and Denies sore throat Cardiovascular: Cardiovascular: Denies chest pain, Denies edema, Denies palpitations and Denies dyspnea Respiratory: Respiratory: Denies cough and Denies dyspnea Gastrointestinal: Gastrointestinal: Denies abdominal pain, Denies diarrhea, Denies nausea and Denies vomiting Genitourinary: Genitourinary: Denies hematuria, Reports nocturia, Reports dysuria, Denies flank pain and Reports urinary urgency Musculoskeletal: Musculoskeletal: Denies back pain and Denies numbness Integumentary/Breasts: Skin/Breast: Denies pruritus and Denies rash Neurologic: Denies headache(s), Denies numbness and Denies weakness Psychiatric: Psychiatric: Reports no additional psychiatric complaints Endocrine: Endocrine: Denies palpitations PMFSH Past Medical History Medical History Psoriasis IUP (intrauterine ), incidental Social History Social History Smoking status: Never smoker Alcohol intake: never Substance use: never Substance use type: does not use Do You Feel Safe in your Home?: Yes Lack of Transportation: No Lack of Food: Never True Current Housing: I Have Housing Concerned About Future Housing: No Difficulty Paying Gas/Electric Bills: No Difficulty Paying for Meds: No Currently Unemployed: No Education: High School Diploma/GED Difficulty w/ Childcare or Family Care: No Additional living arrangements comments: FOB/boyfriend Occupation/Education: occupation Gender identity (if verbalized by the patient): Female Sexual Orientation (if Verbalized by the Patient): Straight or Heterosexual Spiritual care concerns: No Comments At time of signature, agree with nursing past medical, surgical, social and family history. There is no relevant family history pertinent to the presenting complaint. Exam Const: General: cooperative, healthy appearing, comfortable, no acute distress and well nourished Nutritional Appearance: well nourished Orientation/consciousness: patient oriented x3 HENMT: Head: normocephalic and atraumatic Ears: external ears normal Face/Nose/Sinus: Normal external nose present, Normal nares present and normal facial exam Face and sinus: normal facial exam Eyes: General: appearance normal, both eyes and all related structures Pupils: Equal, round and reactive pupils present EOM: EOMs intact bilaterally Neck: Neck: normal visual inspection, full ROM and supple Chest: Chest palpation & inspection: normal inspection of the chest Resp: Effort & Inspection: normal respiratory effort and able to speak in complete sentences Cardio: Rate: regular rate Rhythm: regular rhythm GI: Inspection: normal to inspection GI Palp: No abdominal tenderness and Yes Soft to palpation : General: Yes no CVA tenderness Back/Spine/Pelvis: Back: no CVA tenderness Skin: General skin exam: normal color and no rashes or lesions noted Neuro: General: patient oriented x3 and moves all extremities Cranial nerves: Yes Equal, round and reactive pupils present Extrem: General: normal to inspection and full ROM Psych: Appearance: grossly normal and well kempt Course Course Emergency Course: Patient is aware of diagnosis, understands and agrees to treatment plan. Anticipatory guidance given. Patient agrees to follow-up as directed and is aware of reasons to seek care at the emergency department. Portions of this record may have been created with voice recognition software Level of Care: Express Care Visit Vital Signs Vital signs: Vital Signs Temperature 36.7 C 12/11/24 15:38 Pulse Rate 97 12/11/24 15:38 Respiratory Rate 18 12/11/24 15:38 Blood Pressure 110/61 12/11/24 15:38 Pulse Oximetry 98 12/11/24 15:38 Oxygen Delivery Room Air 12/11/24 15:38 Temperature 36.7 C 12/11/24 15:38 Pulse Rate 97 12/11/24 15:38 Respiratory Rate 18 12/11/24 15:38 Blood Pressure 110/61 12/11/24 15:38 Pulse Oximetry 98 12/11/24 15:38 Oxygen Delivery Room Air 12/11/24 15:38 Reviewed MDM - Female Genitourinary MDM Narrative Medical decision making narrative: Exam findings and UA show probable UTI. Patient adamantly asking for Augmentin as is the only thing that worked her last time. Explained that last culture Bactrim showed to be more susceptible but insisting on Augmentin. Patient is not ; patient is non-toxic appearing and is in no distress. No CMT, adnexal tenderness, or evidence of pelvic etiology. Patient is appropriate for outpatient treatment and follow-up. Differential Diagnosis Differential diagnosis: Likely urinary tract infection, bacterial vaginosis, trichomoniasis, cervicitis, vaginitis and cystitis Medical Records Attestation: I reviewed the patient's medical records. Lab Data Attestation: I reviewed the patient's lab results. Labs: Lab Results 12/11/24 Range/Units 15:43 POC Urine Color Yellow POC Urine Clarity Cloudy POC Urine pH 7.0 POC Ur Specif [place] 1.020 POC Urine Protein Negative (Negative) POC Ur Glucose (UA) Negative (Negative) POC Urine Ketones Negative (Negative) POC Urine Blood 2+ (Negative) POC Urine Nitrite Negative (Negative) POC Urine Bilirubin Negative (Negative) POC Urine Urobilinogen 1.0 POC U Leukocyte Esteras 2+ (Negative) Discharge Plan Discharge Clinical Impression: Urinary tract infection Qualifiers: Urinary tract infection type: acute cystitis Hematuria presence: with hematuria Qualified Code(s): N30.01 - Acute cystitis with hematuria Patient Disposition: Home Condition: Stable Instructions: Urinary Tract Infection in Women (ED) Additional Instructions: We will send a urine culture to the lab, based on your symptoms and urine dip we will start treatment today. If culture comes back and bacteria is not susceptible to antibiotic, your prescription may change. Your symptoms should improve within a day of starting antibiotics, but you should finish all the antibiotic pills you get. Otherwise your infection might come back Continue with increased water intake. Take Tylenol or ibuprofen as needed for pain or fever. Follow-up with primary care provider for urine recheck or see ER visit if condition worsens with high fever, nausea, vomiting, severe back pain Patient Language: Mongolian Prescriptions: New amoxicillin-pot clavulanate 875-125 mg tablet 1 tablet PO Q12H 5 Days Qty: 10 0RF No Action norethindrone-e.estradiol-iron [Junel FE 1.5/30 (28)] 1.5 mg-30 mcg (21)/75 mg (7) tablet 1 tablet PO DAILY Qty: 84 3RF ferrous sulfate [FeroSul] 325 mg (65 mg iron) tablet 325 mg PO DAILY Qty: 90 0RF Follow-up/Referrals: Luc Stone MD [Physician, Family Practice] - 3 Days Time of Disposition: 16:03
[2024-12-11 15:48] LABS: EDUAAPPEAR Cloudy; EDUABILI Negative (Negative); EDUABLOOD 2+ (Negative); EDUACOLOR1 Yellow; EDUAGLUCOSE Negative (Negative); EDUAKETONE Negative (Negative); EDUALEUKO 2+ (Negative); EDUANITRATE Negative (Negative); EDUAPH 7.0; EDUAPROTEIN Negative (Negative); EDUASPGRAVITY 1.020; EDUAUROBILI 1.0
== END 2024-12-11 16:10 | disposition home or self-care (01) ==
PROVIDERS: Emergency Provider Nurse Practitioner Family
DX: N30.01 Acute cystitis with hematuria (principal)
CPT/HCPCS: 81003; 87086; 87186; 99213; G0463

== ENCOUNTER 2025-02-21 13:49 | Emergency (ER) | payer OTHER, SELFPAY ==
--- NOTE | 2025-02-21 13:52 | ED_ITS ---
HPI - URI/Sore Throat General Chief Complaint: Upper Respiratory Infection Stated Complaint: Sinus/Congestion Time Seen by Provider: 02/21/25 14:00 Source: patient Mode of arrival: ambulatory Limitations: no limitations History of Present Illness HPI Narrative: Chest to the is a 24-year-old female patient presenting to the clinic today with complaints feeling feverish, headaches, body aches, chills, nasal congestion, and sore throat x3 days. She denies any chest pain or shortness of breath. She has taken TheraFlu and Tylenol for her symptoms. MD elicited complaint: sore throat and nasal congestion Related Data Allergies Allergy/AdvReac Type Severity Reaction Status Date / Time No Known Allergies Allergy Mild Verified 02/21/25 13:52 Review of Systems Review of Systems: Pertinent positives per HPI. Patient denies any rash, visual changes, dizziness, shortness of breath, chest pain, palpitations, nausea, vomiting, diarrhea, constipation, abdominal pain, or any urinary issues. PMFSH Past Medical History Medical History Psoriasis IUP (intrauterine ), incidental Social History Social History Smoking status: Never smoker Alcohol intake: never Substance use: never Substance use type: does not use Lack of Transportation: No Lack of Food: Never True Current Housing: I Have Housing Concerned About Future Housing: No Difficulty Paying Gas/Electric Bills: No Difficulty Paying for Meds: No Currently Unemployed: No Education: High School Diploma/GED Difficulty w/ Childcare or Family Care: No Additional living arrangements comments: FOB/boyfriend Occupation/Education: occupation Gender identity (if verbalized by the patient): Female Sexual Orientation (if Verbalized by the Patient): Straight or Heterosexual Spiritual care concerns: No Comments At the time of my signature, I reviewed and agree with the nursing past medical, surgical, social, and family history. There is no relevant family history pertinent to the patient complaint. Exam Narrative: General: Well-developed, well nourished, in no apparent distress Head: Normocephalic, atraumatic Eyes: Pupils equally round and reactive to light bilaterally, EOM intact, sclera and conjunctive clear, no discharge, lids normal Ears: TMs intact and clear, ear canals clear, no drainage, grossly hearing normal. Nose: Nares patent, clear nasal discharge, mild inflammation, no sinus tenderness. Mouth: Oral pharynx red without lesions or masses, good dentition, MMM. Postnasal drip Neck: Supple, trachea midline, no enlargement of anterior or posterior cervical nodes, no thyroid masses or goiter palpable. Cardio: Regular rate and rhythm, s1 and s2 normal, no murmur appreciated. Resp: Clear to auscultation bilaterally, no rhonchi, rales, wheezing or rubs Course Course Level of Care: Express Care Visit MDM MDM Narrative Medical decision making narrative: At the time of visit patient is resting comfortably on the exam table. Patient appears to be nontoxic. Complaints feeling feverish, headaches, body aches, chills, nasal congestion, and sore throat x3 days. She denies any chest pain or shortness of breath. She has taken TheraFlu and Tylenol for her symptoms. On exam patient has bilateral TMs intact and clear, clear nasal drainage, anterior turbinate inflammation, oral pharynx mildly red with postnasal drip, no cervical lymphadenopathy, lung sounds are clear, heart rates regular rate and rhythm, CO VID, flu, and strep test were ordered. Labs: COVID, flu, and strep test were performed. COVID and strep test were negative. We will send strep for culture. Influenza A positive Plan: Patient has influenza A. Work note was given. Supportive measures were discussed with the patient and they voiced understanding discharge instructions and agrees to treatment plan. Return precautions reviewed Differential Diagnosis Differential Diagnosis: Differential diagnostic considerations for upper respiratory infection include upper respiratory infection, croup, otitis media, sinusitis, viral infection, bronchitis, influenza, pharyngitis, strep, uvulitis. Discharge Plan Discharge Clinical Impression: Influenza A Patient Disposition: Home Condition: Stable Instructions: Antibiotic Form, Influenza (ED) Additional Instructions: COVID, strep, and influenza testing was completed. COVID and strep test were negative. Influenza A test was positive. May take DayQuil/NyQuil for cold/flu symptoms Increase fluids and stay well hydrated May take Tylenol or motrin as directed on bottle for pain/fever May use Flonase 1 spray in each nare daily May take OTC antihistamines such as Zyrtec or Claritin daily as directed on bottle May apply Vicks vapor rub to chest to open sinuses Sinus rinses for congestion Cepacol spray, cough drops, throat lozenges, warm tea with honey/lemon, gargle salt water to soothe throat BRAT diet for diarrhea Clear liquids x 24 hours then advance as tolerated for nausea/vomiting Go to the ED if you develop a worsening in your condition- high fever not controlled by Tylenol or Motrin, dehydration, weakness, lethargy, shortness of breath, or chest pain. Follow up with your PCP in 3-5 days if symptoms persist. Patient Language: [place] Prescriptions: No Action norethindrone-e.estradiol-iron [.5/ (28)] 1.5 mg-30 mcg (21)/75 mg (7) tablet 1 tablet PO DAILY Qty: 84 0RF Follow-up/Referrals: PHYSICIAN NOT ON STAFF,NONSTAFF [Primary Care Provider] Stand Alone Forms: Work/School Release IP Time of Disposition: 14:07 Quality NIHSS Nursing Documentation ED NIHSS nursing documentation: reviewed/agree
[2025-02-21 13:55] VITALS: BP 106/68; PULSE 134; RESP 18; TEMP 36.7; O2SAT 99
[2025-02-21 14:10] LABS: EDSTREPNEGPOS1 Negative (Negative)
[2025-02-21 14:20] LABS: EDCOVIDSCREEN Negative (Negative); EDINFLUASCREEN Positive (Negative); EDINFLUBSCREEN Negative (Negative)
== END 2025-02-21 14:20 | disposition home or self-care (01) ==
PROVIDERS: Emergency Provider Nurse Practitioner Family
DX: J10.1 Influenza due to other identified influenza virus with other respiratory manifestations (principal); Z20.822 Contact with and (suspected) exposure to COVID-19; L40.9 Psoriasis, unspecified
CPT/HCPCS: 87081; 87426; 87804; 87880; 99213; G0463